=== PATIENT | male | born 1960 | race Caucasian/White ===

== ENCOUNTER 2017-02-19 21:18 | Emergency (ER) | payer BC ==
[2017-02-19 21:59] LABS: BASOPHIL % 1.3 % (0-2); PLATELET COUNT 224 x10^3mcL (130-400); RED CELL DISTRIBUTION WIDTH 12.9 % (11.5-14.5)
[2017-02-19 22:05] LABS: CALCIUM 8.1 mg/dL (8.5-10.1); CARBON DIOXIDE 22.7 mmol/L (21-32); CHLORIDE SERUM 107 mmol/L (98-107); GFR1 > 60 mL/min; GLUCOSE SERUM 135 mg/dL (74-106); POTASSIUM SERUM 3.1 mmol/L (3.5-5.1); SODIUM SERUM 142 mmol/L (136-145)
[2017-02-19 22:10] LABS: ALBUMIN 3.5 g/dL (3.4-5.0); ALKALINE PHOSPHATASE 81 U/L (46-116); ALT/SGPT 43 U/L (16-63); AST/SGOT 32 U/L (15-37); TOTAL PROTEIN, SERUM 6.9 g/dL (6.4-8.2)
[2017-02-19 22:14] VITALS: BP 139/87
== END 2017-02-19 22:14 | disposition short-term general hospital (02) ==
LOC: ED 21:18
PROVIDERS: Emergency Medicine
DX: I21.4 Non-ST elevation (NSTEMI) myocardial infarction (principal); R61 Generalized hyperhidrosis
CPT/HCPCS: 83880; J1644; J2270; J7030

== ENCOUNTER 2019-04-13 10:44 | Emergency (ER) | payer BC ==
[~2019-04-13] VITALS: Ht 165.1 cm; Wt 93.4 kg
[2019-04-13 11:01] VITALS: Ht 165.1 cm; Wt 93.4 kg
[2019-04-13 14:17] VITALS: BP 122/87
== END 2019-04-13 14:17 | disposition home or self-care (01) ==
LOC: ED 10:44
DX: M54.42 Lumbago with sciatica, left side (principal); Z95.5 Presence of coronary angioplasty implant and graft
CPT/HCPCS: J1885